=== PATIENT | male | born 1955 | race Caucasian/White ===

== ENCOUNTER 2017-02-04 15:46 | Emergency (ER) | payer MEDICARE, MEDICAID ==
[~2017-02-04] VITALS: Ht 182.9 cm; Wt 83.9 kg
[2017-02-04] MEDS ORDERED: SODIUM CHLORIDE 0.9% 500 ML IV ONE (15:52)
[2017-02-04 16:13] LABS: BASOPHILS % 0.7 % (0.0-2.0); EOSINOPHILS % 2.1 % (0.0-5.0); HEMATOCRIT. 39.9 % (42.0-52.0); HEMOGLOBIN. 13.5 g/dL (14.0-18.0); LYMPHOCYTES % 26.4 % (20.0-50.0); MEAN CORPUSCULAR HEMOGLOBIN 29.7 pg (28.0-32.0); MEAN CORPUSCULAR VOLUME 87.9 fL (80.0-94.0); MEAN PLATELET VOLUME 8.8 fl (7.4-10.4); MONOCYTES % 7.8 % (2.0-8.0); PLATELET 192 x1000/uL (130-400); RED BLOOD CELL COUNT 4.54 mill/uL (4.7-6.1)
[2017-02-04 16:21] LABS: PROTHROMBIN TIME 10.6 sec
[2017-02-04] MEDS ORDERED: ALTEPLASE 10 MG in SODIUM CHLORIDE 0.9% 250 ML IV STA (16:22)
[2017-02-04] MEDS ORDERED: NICARDIPINE 20MG/200ML PREMIX 200 ML IV STA (16:22)
[2017-02-04 16:23] LABS: CARBON DIOXIDE 26 mEq/L (21-32); CHLORIDE 97 mEq/L (98-107)
[2017-02-04 16:28] LABS: TROPONIN I < 0.02 ng/mL (0.00-0.04)
[2017-02-04] MEDS ORDERED: LABETALOL 5MG/ML SYR 20 MG/4 ML SYRINGE IV ONE (16:30)
[2017-02-04] MEDS ORDERED: NICARDIPINE 25 MG in SODIUM CHLORIDE 0.9% 240 ML IV PRN (16:45)
[2017-02-04] MEDS ORDERED: ALTEPLASE 2MG/VIAL INJ NR (17:00)
[2017-02-04] MEDS ORDERED: ALTEPLASE IV NR (17:00)
[2017-02-04 17:39] VITALS: BP 146/82
[2017-03-27] MEDS ORDERED: ASPI-1035 PO (06:46)
== END 2017-02-04 17:43 | disposition short-term general hospital (02) ==
LOC: EDBD 15:46 → ER 15:50
DX: I63.9 Cerebral infarction, unspecified (principal); I12.0 Hypertensive chronic kidney disease with stage 5 chronic kidney disease or end stage renal disease; N18.6 End stage renal disease; E11.9 Type 2 diabetes mellitus without complications; Z89.511 Acquired absence of right leg below knee; Z99.2 Dependence on renal dialysis; Z88.6 Allergy status to analgesic agent
CPT/HCPCS: 36415; 70450; 71010; 80053; 82962; 83690; 84484; 85025; 85610; 85730; 93005; 96361; 96365; 96375; 99291; J2997; J3490; J7030; J7040; J7050

== ENCOUNTER 2017-03-26 19:52 | Inpatient (IN) | payer MEDICARE, MEDICAID ==
[~2017-03-26] VITALS: Ht 177.8 cm; Wt 69.4 kg
[2017-03-26] MEDS ORDERED: LORAZEPAM 2MG/ML CPJ IV ONE ×3 (22:30→23:30)
[2017-03-26 22:32] LABS: CLARITY URINE CLEAR (CLEAR); COLOR URINE DARK YELLOW (YELLOW); GLUCOSE URINE NEGATIVE (NEGATIVE); KETONES URINE NEGATIVE (NEGATIVE); LEUKOCYTE ESTERASE URINE 1+ (NEGATIVE); NITRITE URINE NEGATIVE (NEGATIVE); OCCULT BLOOD URINE NEGATIVE (NEGATIVE); PROTEIN URINE 2+ (NEGATIVE); SPECIFIC GRAVITY URINE 1.016 (1.005-1.030)
[2017-03-26 22:35] LABS: BASOPHILS % 1.1 % (0.0-2.0); EOSINOPHILS % 0.6 % (0.0-5.0); HEMATOCRIT. 36.3 % (42.0-52.0); HEMOGLOBIN. 11.9 g/dL (14.0-18.0); LYMPHOCYTES % 24.1 % (20.0-50.0); MEAN CORPUSCULAR HEMOGLOBIN 28.7 pg (28.0-32.0); MEAN PLATELET VOLUME 8.3 fl (7.4-10.4); MONOCYTES % 14.2 % (2.0-8.0); PLATELET 245 x1000/uL (130-400); RED BLOOD CELL COUNT 4.17 mill/uL (4.7-6.1); RED CELL DISTRIBUTION WIDTH 16.2 % (11.6-14.6)
[2017-03-26 22:37] LABS: INR 1.1; PROTHROMBIN TIME 11.9 sec
[2017-03-26 22:51] LABS: CARBON DIOXIDE 30 mEq/L (21-32); CHLORIDE 98 mEq/L (98-107); TROPONIN I 0.06 ng/mL (0.00-0.04)
[2017-03-26] MEDS ORDERED: DEXTROSE 50% WATER 50ML SYRINGE IV ONE (23:00)
[2017-03-26] MEDS ORDERED: ACETAMINOPHEN 325MG TABLET PO PRN (23:30)
[2017-03-26] MEDS ORDERED: ONDANSETRON HCL 4MG/2ML VIAL IV PRN (23:30)
[2017-03-26] MEDS ORDERED: GUAIFENESIN 200MG/10ML SUGAR FREE UDC PO PRN (23:30)
[2017-03-26] MEDS ORDERED: DIPHENHYDRAMINE 50MG/ML VIAL IV PRN (23:30)
[2017-03-26] MEDS ORDERED: NA PHOS,M-B/NA PHOS,DI-BA ENEMA 118ML PR PRN (23:30)
[2017-03-26] MEDS ORDERED: NITROGLYCERIN 0.4MG TABLET SL SL PRN (23:30)
[2017-03-26] MEDS ORDERED: IPRATROPIUM/ALBUTEROL 0.5-3(2.5)MG/3ML NEB INH PRN (23:30)
[2017-03-26] MEDS ORDERED: ZOLPIDEM TARTRATE 5MG TABLET PO PRN (23:30)
[2017-03-26] MEDS ORDERED: DOCUSATE SODIUM 100MG CAPSULE PO PRN (23:30)
[2017-03-26] MEDS ORDERED: MAGNESIUM/ALUMINUM HYDROXIDE/SIMETHICONE 30ML UDC PO PRN (23:30)
[2017-03-26] MEDS ORDERED: MORPHINE SULFATE 2 MG/ML CPJ (NOT FOR IM USE) IV PRN (23:30)
[2017-03-26] MEDS ORDERED: TRAMADOL 50MG TABLET PO PRN (23:30)
[2017-03-27] VITALS (26 sets, daily range): BP systolic 123–168; BP diastolic 73–91
[2017-03-27] MEDS ORDERED: DEXT 5%/0.45% NACL 1000ML 1,000 ML IV ONE (01:15)
[2017-03-27] MEDS ORDERED: ASPIRIN 300MG SUPP PR ONE (01:30)
[2017-03-27] MEDS ORDERED: CEFTRIAXONE 1 G PREMIX 50 ML IV ONE (01:30)
[2017-03-27] MEDS: LORAZEPAM 2MG/ML CPJ IV PRN ×4 (05:13→22:59)
[2017-03-27] MEDS ORDERED: POTASSIUM CHLORIDE 20MEQ TABLET SR PO NR (05:14)
[2017-03-27] MEDS ORDERED: POLY255P2 PO (06:46)
[2017-03-27] MEDS ORDERED: ATOR40TA70 PO (06:46)
[2017-03-27] MEDS ORDERED: TAMS0.4C31 PO (06:46)
[2017-03-27] MEDS ORDERED: KEPP500 PO (06:46)
[2017-03-27] MEDS ORDERED: INSU3INS6 SUBCUT (06:46)
[2017-03-27] MEDS ORDERED: AMAN100T PO (06:46)
[2017-03-27] MEDS ORDERED: FURO80TA3 PO (06:46)
[2017-03-27] MEDS ORDERED: FENO48TA2 PO (06:46)
[2017-03-27] MEDS ORDERED: ASPI-1159 PO (06:46)
[2017-03-27] MEDS ORDERED: NEPVIT PO (06:46)
[2017-03-27] MEDS ORDERED: SEVELAMER CARBONATE 800 MG TABLET PO SCH (07:50)
[2017-03-27] MEDS: PANTOPRAZOLE SODIUM 40 MG/VIAL IV SCH (08:56)
[2017-03-27] MEDS: FOLIC ACID/VITAMIN B COMP W-C TABLET PO SCH (08:57)
[2017-03-27] MEDS: ENOXAPARIN 30MG/0.3ML SYR SUBCUT SCH ×2 (08:58→11:20)
[2017-03-27] MEDS ORDERED: LISINOPRIL 20MG TABLET PO SCH (09:00)
[2017-03-27] MEDS ORDERED: METOPROLOL TARTRATE 25MG TABLET PO SCH (09:00)
[2017-03-27] MEDS ORDERED: ASPIRIN 325MG EC TABLET PO SCH (09:00)
[2017-03-27 09:27] LABS: TROPONIN I 0.13 ng/mL (0.00-0.04)
[2017-03-27] MEDS ORDERED: DEXTROSE 50% WATER 50ML SYRINGE IV PRN ×2 (11:00→12:00)
[2017-03-27] MEDS: BLOOD SUGAR DIAGNOSTIC STRIP TEST SCH ×3 (11:46→20:19)
[2017-03-27] MEDS ORDERED: BLOOD SUGAR DIAGNOSTIC STRIP TEST SCH (12:20)
[2017-03-27] MEDS ORDERED: INSULIN LISPRO 100 UNITS/ML SUBCUT SCH (12:50)
[2017-03-27] MEDS: INSULIN LISPRO 100 UNITS/ML SUBCUT SCH ×3 (12:50→20:24)
[2017-03-27] MEDS ORDERED: LEVETIRACETAM 500MG/5ML CUP PO SCH (13:00)
[2017-03-27] MEDS: LEVETIRACETAM 500MG TABLET PO SCH ×2 (13:28→20:19)
[2017-03-27] MEDS ORDERED: FOLIC ACID/VITAMIN B COMP W-C TABLET PO SCH (13:30)
[2017-03-27] MEDS ORDERED: KCL 20MEQ/100ML PREMIX 100 ML IV NR (14:00)
[2017-03-27] MEDS ORDERED: AZITHROMYCIN 500 MG in DEXT 5% WATER 250 ML IV SCH (14:00)
[2017-03-27] MEDS: AMANTADINE HCL 100 MG CAPSULE PO SCH ×2 (14:32→20:19)
[2017-03-27 14:50] LABS: CLARITY URINE CLOUDY (CLEAR); COLOR URINE DARK YELLOW (YELLOW); GLUCOSE URINE NEGATIVE (NEGATIVE); KETONES URINE NEGATIVE (NEGATIVE); LEUKOCYTE ESTERASE URINE 1+ (NEGATIVE); NITRITE URINE NEGATIVE (NEGATIVE); OCCULT BLOOD URINE 3+ (NEGATIVE); PROTEIN URINE 3+ (NEGATIVE); SPECIFIC GRAVITY URINE 1.019 (1.005-1.030)
[2017-03-27] MEDS ORDERED: POTASSIUM PHOS,M-BASIC-D-BASIC 20 MMOL in DEXT 5% WATER 243.3333 ML IV NR (15:00)
[2017-03-27 15:06] LABS: CREATINE KINASE MB FRACTION 3.2 ng/mL (0.5-3.6); TROPONIN I 0.12 ng/mL (0.00-0.04)
[2017-03-27] MEDS ORDERED: AMANTADINE HCL 100 MG CAPSULE PO SCH (17:00)
[2017-03-27] MEDS: CLONIDINE 0.1MG TABLET PO PRN (23:36)
[2017-03-28] VITALS (48 sets, daily range): BP systolic 110–175; BP diastolic 33–94
[2017-03-28] MEDS: LORAZEPAM 2MG/ML CPJ IV PRN ×3 (02:35→23:08)
[2017-03-28 04:27] LABS: HEMATOCRIT 33.8 % (42.0-52.0); HEMOGLOBIN 11.2 g/dL (14.0-18.0); MEAN CORPUSCULAR HEMOGLOBIN 28.8 pg (28.0-32.0); MEAN CORPUSCULAR VOLUME 87.5 fL (80.0-94.0); PLATELET 208 x1000/uL (130-400); RED BLOOD CELL COUNT 3.87 mill/uL (4.7-6.1); RED CELL DISTRIBUTION WIDTH 15.9 % (11.6-14.6)
[2017-03-28] MEDS: BLOOD SUGAR DIAGNOSTIC STRIP TEST SCH ×4 (06:35→21:44)
[2017-03-28] MEDS: INSULIN LISPRO 100 UNITS/ML SUBCUT SCH ×4 (06:35→21:00)
[2017-03-28] MEDS ORDERED: KCL 20MEQ/100ML PREMIX 100 ML IV SCH (09:00)
[2017-03-28] MEDS ORDERED: CEFTRIAXONE 1 G PREMIX 50 ML IV SCH (09:00)
[2017-03-28 09:05] LABS: VITAMIN B12 SERUM 1166 pg/mL (211-911)
[2017-03-28] MEDS: LEVETIRACETAM 500MG TABLET PO SCH ×2 (12:18→21:44)
[2017-03-28] MEDS: PANTOPRAZOLE SODIUM 40 MG/VIAL IV SCH (12:18)
[2017-03-28] MEDS: ASPIRIN 81MG TABLET PO SCH (12:18)
[2017-03-28] MEDS: FOLIC ACID/VITAMIN B COMP W-C TABLET PO SCH (12:18)
[2017-03-28] MEDS: CLONIDINE 0.1MG TABLET PO PRN (17:16)
[2017-03-28] MEDS: HYDRALAZINE 20MG/ML VIAL IV PRN (18:46)
[2017-03-29] VITALS (50 sets, daily range): BP systolic 110–170; BP diastolic 65–100
[2017-03-29] MEDS: CLONIDINE 0.1MG TABLET PO PRN ×3 (00:40→17:02)
[2017-03-29] MEDS: HYDRALAZINE 20MG/ML VIAL IV PRN (03:36)
[2017-03-29 05:28] LABS: HEMATOCRIT 36.3 % (42.0-52.0); HEMOGLOBIN 11.8 g/dL (14.0-18.0); MEAN CORPUSCULAR HEMOGLOBIN 28.4 pg (28.0-32.0); MEAN CORPUSCULAR VOLUME 87.4 fL (80.0-94.0); PLATELET 207 x1000/uL (130-400); RED BLOOD CELL COUNT 4.16 mill/uL (4.7-6.1); RED CELL DISTRIBUTION WIDTH 15.8 % (11.6-14.6)
[2017-03-29] MEDS: BLOOD SUGAR DIAGNOSTIC STRIP TEST SCH ×4 (05:48→21:00)
[2017-03-29 06:01] LABS: PHOSPHORUS 3.8 mg/dL (2.5-4.9)
[2017-03-29] MEDS: INSULIN LISPRO 100 UNITS/ML SUBCUT SCH ×4 (07:00→21:52)
[2017-03-29] MEDS ORDERED: LACTULOSE 20G/30ML UDC PO NR (08:45)
[2017-03-29] MEDS: PANTOPRAZOLE SODIUM 40 MG/VIAL IV SCH (09:11)
[2017-03-29] MEDS: ASPIRIN 81MG TABLET PO SCH (09:12)
[2017-03-29] MEDS: FOLIC ACID/VITAMIN B COMP W-C TABLET PO SCH (09:12)
[2017-03-29] MEDS: ENOXAPARIN 30MG/0.3ML SYR SUBCUT SCH (09:12)
[2017-03-29] MEDS: LEVETIRACETAM 500MG TABLET PO SCH ×2 (09:13→21:51)
[2017-03-30] VITALS (35 sets, daily range): BP systolic 101–169; BP diastolic 65–98
[2017-03-30] MEDS: CLONIDINE 0.1MG TABLET PO PRN (02:04)
[2017-03-30] MEDS: BLOOD SUGAR DIAGNOSTIC STRIP TEST SCH ×3 (05:36→17:04)
[2017-03-30 05:40] LABS: HEMOGLOBIN 11.3 g/dL (14.0-18.0); MEAN CORPUSCULAR VOLUME 87.5 fL (80.0-94.0); PLATELET 209 x1000/uL (130-400); RED BLOOD CELL COUNT 3.88 mill/uL (4.7-6.1); RED CELL DISTRIBUTION WIDTH 15.7 % (11.6-14.6)
[2017-03-30] MEDS: INSULIN LISPRO 100 UNITS/ML SUBCUT SCH ×3 (05:52→17:05)
[2017-03-30 06:07] LABS: PHOSPHORUS 4.3 mg/dL (2.5-4.9)
[2017-03-30] MEDS: LEVETIRACETAM 500MG TABLET PO SCH ×2 (12:04→21:17)
[2017-03-30] MEDS: ASPIRIN 81MG TABLET PO SCH (12:05)
[2017-03-30] MEDS: FOLIC ACID/VITAMIN B COMP W-C TABLET PO SCH (12:05)
[2017-03-30] MEDS: ENOXAPARIN 30MG/0.3ML SYR SUBCUT SCH (12:05)
[2017-03-30] MEDS: PANTOPRAZOLE SODIUM 40 MG/VIAL IV SCH (12:05)
[2017-03-31] VITALS (13 sets, daily range): BP systolic 126–148; BP diastolic 63–78
[2017-03-31] MEDS: BLOOD SUGAR DIAGNOSTIC STRIP TEST SCH ×5 (00:01→23:23)
[2017-03-31] MEDS: LORAZEPAM 2MG/ML CPJ IV PRN (00:25)
[2017-03-31] MEDS: INSULIN LISPRO 100 UNITS/ML SUBCUT SCH ×5 (00:25→23:23)
[2017-03-31 06:26] LABS: HEMATOCRIT 34.9 % (42.0-52.0); HEMOGLOBIN 11.4 g/dL (14.0-18.0); MEAN CORPUSCULAR HEMOGLOBIN 28.5 pg (28.0-32.0); MEAN CORPUSCULAR VOLUME 87.4 fL (80.0-94.0); PLATELET 226 x1000/uL (130-400); RED BLOOD CELL COUNT 3.99 mill/uL (4.7-6.1); RED CELL DISTRIBUTION WIDTH 15.9 % (11.6-14.6)
[2017-03-31] MEDS: ASPIRIN 81MG TABLET PO SCH (09:00)
[2017-03-31] MEDS: FOLIC ACID/VITAMIN B COMP W-C TABLET PO SCH (09:00)
[2017-03-31] MEDS: LEVETIRACETAM 500MG TABLET PO SCH (09:00)
[2017-03-31] MEDS: ENOXAPARIN 30MG/0.3ML SYR SUBCUT SCH (10:27)
[2017-03-31] MEDS: PANTOPRAZOLE SODIUM 40 MG/VIAL IV SCH (10:27)
[2017-03-31] MEDS ORDERED: LORAZEPAM 0.5MG TABLET NG PRN (13:00)
[2017-03-31] MEDS ORDERED: DEXT 5%/0.45% NACL 1000ML 1,000 ML IV SCH ×2 (13:30)
[2017-03-31] MEDS: LEVETIRACETAM 500 MG in SODIUM CHLORIDE 0.9% 100 ML IV SCH (15:23)
[2017-04-01] VITALS (11 sets, daily range): BP systolic 140–164; BP diastolic 70–88
[2017-04-01] MEDS: LEVETIRACETAM 500 MG in SODIUM CHLORIDE 0.9% 100 ML IV SCH ×2 (02:34→16:16)
[2017-04-01] MEDS: INSULIN LISPRO 100 UNITS/ML SUBCUT SCH ×4 (06:00→23:41)
[2017-04-01] MEDS: BLOOD SUGAR DIAGNOSTIC STRIP TEST SCH ×4 (06:07→23:36)
[2017-04-01 08:19] LABS: HEMATOCRIT. 33.5 % (42.0-52.0); HEMOGLOBIN. 10.9 g/dL (14.0-18.0); MEAN CORPUSCULAR HEMOGLOBIN 28.1 pg (28.0-32.0); MEAN CORPUSCULAR VOLUME 86.6 fL (80.0-94.0); MEAN PLATELET VOLUME 8.6 fl (7.4-10.4); PLATELET 219 x1000/uL (130-400); RED BLOOD CELL COUNT 3.87 mill/uL (4.7-6.1); RED CELL DISTRIBUTION WIDTH 15.7 % (11.6-14.6)
[2017-04-01 08:51] LABS: PLATELET ESTIMATE NORMAL
[2017-04-01] MEDS: FAMOTIDINE 20MG/2ML VIAL IV SCH (09:12)
[2017-04-01] MEDS: ASPIRIN 81MG TABLET PO SCH (09:12)
[2017-04-01] MEDS: FOLIC ACID/VITAMIN B COMP W-C TABLET PO SCH (09:12)
[2017-04-01] MEDS: ENOXAPARIN 30MG/0.3ML SYR SUBCUT SCH (09:13)
[2017-04-01] MEDS ORDERED: LORAZEPAM 2MG/ML CPJ IV PRN (11:30)
[2017-04-01] MEDS: TAMSULOSIN HCL 0.4MG SR CAPSULE PO SCH (11:37)
[2017-04-01] MEDS ORDERED: HALOPERIDOL LACTATE 5MG/ML VIAL IM PRN (17:45)
[2017-04-02] VITALS (12 sets, daily range): BP systolic 138–172; BP diastolic 68–99
[2017-04-02] MEDS: LEVETIRACETAM 500 MG in SODIUM CHLORIDE 0.9% 100 ML IV SCH ×2 (02:52→16:28)
[2017-04-02] MEDS: BLOOD SUGAR DIAGNOSTIC STRIP TEST SCH ×4 (06:00→23:48)
[2017-04-02] MEDS: INSULIN LISPRO 100 UNITS/ML SUBCUT SCH ×4 (06:53→23:48)
[2017-04-02 07:53] LABS: HEMATOCRIT 33.8 % (42.0-52.0); MEAN CORPUSCULAR VOLUME 86.1 fL (80.0-94.0); PLATELET 240 x1000/uL (130-400); RED BLOOD CELL COUNT 3.93 mill/uL (4.7-6.1); RED CELL DISTRIBUTION WIDTH 15.8 % (11.6-14.6)
[2017-04-02] MEDS: FAMOTIDINE 20MG/2ML VIAL IV SCH (08:51)
[2017-04-02] MEDS: FOLIC ACID/VITAMIN B COMP W-C TABLET PO SCH (08:53)
[2017-04-02] MEDS: AMLODIPINE 5MG TABLET PO SCH (08:53)
[2017-04-02] MEDS: TAMSULOSIN HCL 0.4MG SR CAPSULE PO SCH (08:53)
[2017-04-02] MEDS: ASPIRIN 81MG TABLET PO SCH (08:54)
[2017-04-02] MEDS: ENOXAPARIN 30MG/0.3ML SYR SUBCUT SCH (08:54)
[2017-04-03] VITALS (12 sets, daily range): BP systolic 138–161; BP diastolic 72–91
[2017-04-03] MEDS: BLOOD SUGAR DIAGNOSTIC STRIP TEST SCH ×3 (05:18→17:12)
[2017-04-03] MEDS: LEVETIRACETAM 500 MG in SODIUM CHLORIDE 0.9% 100 ML IV SCH ×2 (05:18→15:25)
[2017-04-03] MEDS: INSULIN LISPRO 100 UNITS/ML SUBCUT SCH ×3 (05:23→18:45)
[2017-04-03 06:02] LABS: BASOPHILS % 0.4 % (0.0-2.0); EOSINOPHILS % 1.1 % (0.0-5.0); HEMATOCRIT. 36.5 % (42.0-52.0); HEMOGLOBIN. 11.7 g/dL (14.0-18.0); LYMPHOCYTES % 14.2 % (20.0-50.0); MONOCYTES % 13.8 % (2.0-8.0); NEUTROPHILS % 70.5 % (40.0-76.0); PLATELET 264 x1000/uL (130-400); RED BLOOD CELL COUNT 4.19 mill/uL (4.7-6.1); RED CELL DISTRIBUTION WIDTH 15.9 % (11.6-14.6)
[2017-04-03 06:46] LABS: PREALBUMIN 26.6 mg/dL (20.0-40.0)
[2017-04-03] MEDS: FAMOTIDINE 20MG/2ML VIAL IV SCH (08:27)
[2017-04-03] MEDS: AMLODIPINE 5MG TABLET PO SCH (08:27)
[2017-04-03] MEDS: ASPIRIN 81MG TABLET PO SCH (08:28)
[2017-04-03] MEDS: TAMSULOSIN HCL 0.4MG SR CAPSULE PO SCH (08:28)
[2017-04-03] MEDS: FOLIC ACID/VITAMIN B COMP W-C TABLET PO SCH (08:28)
[2017-04-03] MEDS: ENOXAPARIN 30MG/0.3ML SYR SUBCUT SCH (08:28)
[2017-04-03] MEDS: HYDRALAZINE 20MG/ML VIAL IV PRN (10:34)
[2017-04-03] MEDS ORDERED: SODIUM CHLORIDE 0.9% 1,000 ML IV ONE (13:30)
[2017-04-03] MEDS: CLONIDINE 0.1MG TABLET PO SCH ×2 (15:28→22:31)
[2017-04-03] MEDS: DILTIAZEM HCL 60MG TABLET NG SCH ×2 (18:44→22:31)
[2017-04-04] VITALS (12 sets, daily range): BP systolic 139–155; BP diastolic 70–84
[2017-04-04] MEDS: INSULIN LISPRO 100 UNITS/ML SUBCUT SCH ×4 (00:23→17:48)
[2017-04-04] MEDS: BLOOD SUGAR DIAGNOSTIC STRIP TEST SCH ×4 (00:23→17:48)
[2017-04-04] MEDS: HYDRALAZINE 20MG/ML VIAL IV PRN (03:08)
[2017-04-04] MEDS: LEVETIRACETAM 500 MG in SODIUM CHLORIDE 0.9% 100 ML IV SCH ×2 (03:08→17:09)
[2017-04-04] MEDS: CLONIDINE 0.1MG TABLET PO SCH ×3 (05:44→22:08)
[2017-04-04] MEDS: DILTIAZEM HCL 60MG TABLET NG SCH ×3 (05:44→22:08)
[2017-04-04 06:36] LABS: HEMOGLOBIN 11.1 g/dL (14.0-18.0); MEAN CORPUSCULAR HEMOGLOBIN 28.6 pg (28.0-32.0); MEAN CORPUSCULAR VOLUME 87.6 fL (80.0-94.0); PLATELET 259 x1000/uL (130-400); PROTHROMBIN TIME 10.7 sec; RED BLOOD CELL COUNT 3.88 mill/uL (4.7-6.1); RED CELL DISTRIBUTION WIDTH 15.6 % (11.6-14.6)
[2017-04-04 07:30] LABS: TROPONIN I 0.05 ng/mL (0.00-0.04)
[2017-04-04] MEDS: TAMSULOSIN HCL 0.4MG SR CAPSULE PO SCH (08:59)
[2017-04-04] MEDS: FOLIC ACID/VITAMIN B COMP W-C TABLET PO SCH (08:59)
[2017-04-04] MEDS: ASPIRIN 81MG TABLET PO SCH (08:59)
[2017-04-04] MEDS ORDERED: CEFAZOLIN 1000MG PREMIX 50 ML IV NR (09:00)
[2017-04-04] MEDS: FAMOTIDINE 20MG/2ML VIAL IV SCH (09:04)
[2017-04-04] MEDS ORDERED: FENTANYL CITRATE/PF 50MCG/ML 2ML VIAL IV PRN (10:52)
[2017-04-04] MEDS ORDERED: SIMETHICONE 40 MG/0.6 ML 30ML ONE ×2 (10:53→11:32)
[2017-04-04] MEDS ORDERED: FENTANYL CITRATE/PF 50MCG/ML 2ML VIAL ONE (10:54)
[2017-04-04] MEDS ORDERED: MIDAZOLAM HCL 5 MG/5 ML VIAL ONE (10:54)
[2017-04-04] MEDS ORDERED: MIDAZOLAM HCL 5 MG/5 ML VIAL IV PRN (10:57)
[2017-04-04] MEDS ORDERED: CEFAZOLIN 1000MG PREMIX 50 ML IV ONE ×2 (11:00→11:01)
[2017-04-04] MEDS ORDERED: SODIUM CHLORIDE 0.9% 10ML VIAL ONE (11:32)
[2017-04-04] MEDS: GUAIFENESIN-DM 200MG-20MG/10ML UDC PO PRN (22:31)
[2017-04-05] VITALS (15 sets, daily range): BP systolic 123–150; BP diastolic 58–77
[2017-04-05] MEDS: INSULIN LISPRO 100 UNITS/ML SUBCUT SCH ×4 (00:04→18:24)
[2017-04-05] MEDS: BLOOD SUGAR DIAGNOSTIC STRIP TEST SCH ×4 (00:05→18:12)
[2017-04-05] MEDS: LEVETIRACETAM 500 MG in SODIUM CHLORIDE 0.9% 100 ML IV SCH ×2 (02:35→16:20)
[2017-04-05] MEDS: GUAIFENESIN-DM 200MG-20MG/10ML UDC PO PRN (05:18)
[2017-04-05] MEDS: CLONIDINE 0.1MG TABLET PO SCH ×2 (05:19→21:47)
[2017-04-05] MEDS: DILTIAZEM HCL 60MG TABLET NG SCH (05:19)
[2017-04-05 07:00] LABS: HEMATOCRIT 33.7 % (42.0-52.0); HEMOGLOBIN 10.9 g/dL (14.0-18.0); MEAN CORPUSCULAR HEMOGLOBIN 28.2 pg (28.0-32.0); MEAN CORPUSCULAR VOLUME 86.9 fL (80.0-94.0); PLATELET 262 x1000/uL (130-400); RED BLOOD CELL COUNT 3.88 mill/uL (4.7-6.1); RED CELL DISTRIBUTION WIDTH 15.5 % (11.6-14.6)
[2017-04-05] MEDS: ASPIRIN 81MG TABLET PO SCH (10:21)
[2017-04-05] MEDS: FAMOTIDINE 20MG/2ML VIAL IV SCH (10:21)
[2017-04-05] MEDS: FOLIC ACID/VITAMIN B COMP W-C TABLET PO SCH (10:22)
[2017-04-05] MEDS: TAMSULOSIN HCL 0.4MG SR CAPSULE PO SCH (10:22)
[2017-04-05] MEDS: DILTIAZEM HCL 30MG TABLET GT SCH ×2 (13:06→18:24)
[2017-04-05] MEDS ORDERED: LORAZEPAM 2MG/ML CPJ IV PRN (15:30)
[2017-04-06] VITALS (13 sets, daily range): BP systolic 117–159; BP diastolic 67–82
[2017-04-06] MEDS: BLOOD SUGAR DIAGNOSTIC STRIP TEST SCH ×4 (00:20→17:11)
[2017-04-06] MEDS: INSULIN LISPRO 100 UNITS/ML SUBCUT SCH ×4 (00:26→17:27)
[2017-04-06] MEDS: DILTIAZEM HCL 30MG TABLET GT SCH ×4 (00:26→17:27)
[2017-04-06] MEDS: LEVETIRACETAM 500 MG in SODIUM CHLORIDE 0.9% 100 ML IV SCH ×2 (03:16→15:09)
[2017-04-06 07:23] LABS: HEMATOCRIT 31.9 % (42.0-52.0); HEMOGLOBIN 10.3 g/dL (14.0-18.0); MEAN CORPUSCULAR HEMOGLOBIN 28.1 pg (28.0-32.0); MEAN CORPUSCULAR VOLUME 86.7 fL (80.0-94.0); PLATELET 288 x1000/uL (130-400); RED BLOOD CELL COUNT 3.68 mill/uL (4.7-6.1); RED CELL DISTRIBUTION WIDTH 15.5 % (11.6-14.6)
[2017-04-06 07:40] LABS: PHOSPHORUS 2.5 mg/dL (2.5-4.9)
[2017-04-06] MEDS: CLONIDINE 0.1MG TABLET PO SCH ×2 (08:07→21:03)
[2017-04-06] MEDS: ENOXAPARIN 30MG/0.3ML SYR SUBCUT SCH (09:00)
[2017-04-06] MEDS: ASPIRIN 81MG TABLET PO SCH (09:51)
[2017-04-06] MEDS: FAMOTIDINE 20MG/2ML VIAL IV SCH (09:51)
[2017-04-06] MEDS: FOLIC ACID/VITAMIN B COMP W-C TABLET PO SCH (09:51)
[2017-04-06] MEDS ORDERED: FINASTERIDE 5MG TABLET PO SCH (11:00)
[2017-04-06] MEDS ORDERED: FINASTERIDE 5MG TABLET GT SCH ×2 (11:00→12:00)
[2017-04-06 12:59] LABS: CLARITY URINE CLEAR (CLEAR); COLOR URINE DARK YELLOW (YELLOW); GLUCOSE URINE 2+ (NEGATIVE); KETONES URINE NEGATIVE (NEGATIVE); LEUKOCYTE ESTERASE URINE NEGATIVE (NEGATIVE); NITRITE URINE NEGATIVE (NEGATIVE); OCCULT BLOOD URINE NEGATIVE (NEGATIVE); PROTEIN URINE 2+ (NEGATIVE); UROBILINOGEN URINE 0.2 E.U./dL (0.2-1.0)
== END 2017-04-06 22:14 | DRG 64 ==
LOC: ER 19:53 → 6WST 23:06 → SUPCPDRO 23:18 → MICUSO 03-27 15:09 → 5EST 03-30 18:45
PROVIDERS: ADMIT Internal Medicine; ATTEND Internal Medicine
PROC: 0DH63UZ Insertion of Feeding Device into Stomach, Percutaneous Approach (ICD-10-PCS; principal; 2017-04-04 10:30)
DX: I63.312 Cerebral infarction due to thrombosis of left middle cerebral artery (principal); G92 Toxic encephalopathy; N18.6 End stage renal disease; E44.1 Mild protein-calorie malnutrition; I13.11 Hypertensive heart and chronic kidney disease without heart failure, with stage 5 chronic kidney disease, or end stage renal disease; I69.351 Hemiplegia and hemiparesis following cerebral infarction affecting right dominant side; N39.0 Urinary tract infection, site not specified; E11.22 Type 2 diabetes mellitus with diabetic chronic kidney disease; E11.51 Type 2 diabetes mellitus with diabetic peripheral angiopathy without gangrene; G40.909 Epilepsy, unspecified, not intractable, without status epilepticus; R00.0 Tachycardia, unspecified; E87.6 Hypokalemia; N40.0 Benign prostatic hyperplasia without lower urinary tract symptoms; R13.10 Dysphagia, unspecified; D63.8 Anemia in other chronic diseases classified elsewhere; L89.90 Pressure ulcer of unspecified site, unspecified stage; Z88.8 Allergy status to other drugs, medicaments and biological substances; Z68.22 Body mass index [BMI] 22.0-22.9, adult; Z99.2 Dependence on renal dialysis; I69.320 Aphasia following cerebral infarction; Z89.511 Acquired absence of right leg below knee; Z91.14 Patient's other noncompliance with medication regimen; Z79.899 Other long term (current) drug therapy
CPT/HCPCS: 36415; 51702; 70450; 70551; 71010; 80048; 80053; 80061; 81001; 82040; 82553; 82607; 82962; 83036; 83605; 83690; 83735; 83880; 84100; 84134; 84443; 84484; 85025; 85027; 85610; 85730; 87040; 87086; 87493; 92610; 93005; 93306; 93880; 96361; 96365; 96366; 96375; 96376; 97112; 97163; 97167; 97530; 99285; A4216; A6261; C9113; J0360; J0456; J0690; J0696; J1200; J1650; J1815; J1953; J2060; J2250; J2405; J3010; J3480; J3490; J7030; J7050; J7060; A4315